=== PATIENT | male | born 1980 | race Caucasian/White ===

== ENCOUNTER 2018-04-18 12:37 | Emergency (ER) | payer SELFPAY ==
[2018-04-18 12:42] VITALS: BP 152/95
[2018-04-18] MEDS ORDERED: LIDOCAINE 2% VISCOUS SOLN 20 ML UDCUP PO ONE (13:07)
[2018-04-18] MEDS ORDERED: KETOROLAC TROMETHAMINE INJ/PF 30 MG/1 ML SDV IM ONE (13:07)
--- NOTE | 2018-04-18 13:13 | ER Document Report ---
HPI - HPI Pain Level: 5 Notes: Patient is a 38-year-old male who presents to the ED complaining of Rt lower dental pain #32 chronically due to poor dentition, but increased pain over the last 2 days. He has not noticed any obvious abscess or purulent discharge. Patient states that he is still able to eat and drink, but does have a decreased p.o. intake due to the pain. He has tried some [id number] meds with minimal relief. No other concerns or complaints. He believes there may be an infection and would like an antibiotic. He is scheduling an appointment to get the rest of his teeth removed. Denies any headache, fever, head injury, neck pain, hoarseness, drooling, URI, sore throat, chest pain, palpitations, syncope, cough, shortness of breath, wheeze, dyspnea, abdominal pain, nausea/ vomiting/diarrhea, urinary retention, dysuria, hematuria, or rash. - ROS Systems Reviewed and Negative: Yes All other systems reviewed and negative - DERM Skin Color: Normal <HERNANDO REED - Last Filed: 04/18/18 13:08> <PHUONG GRANT - Last Filed: 04/18/18 14:40> - HPI Time Seen by Provider: 04/18/18 13:02 Past Medical History - Social History Smoking Status: Current Every Day Smoker Chew tobacco use (# tins/day): No Frequency of alcohol use: None Drug Abuse: None Family History: Reviewed & Not Pertinent Patient has suicidal ideation: No Patient has homicidal ideation: No Renal/ Medical History: Denies: Hx Peritoneal Dialysis Past Surgical History: Reports: Hx Appendectomy <HERNANDO REED - Last Filed: 04/18/18 13:08> Vertical Provider Document - CONSTITUTIONAL Agree With Documented VS: Yes Notes: PHYSICAL EXAMINATION: GENERAL: Well-appearing, well-nourished and in no acute distress. HEAD: Atraumatic, normocephalic. EYES: Pupils equal round and reactive to light, extraocular movements intact, sclera anicteric, conjunctiva are normal. ENT: EAC clear b/l. TM's intact b/l without erythema, fluid, or perforation. Nares patent and without discharge. oropharynx clear without exudates. No tonsilar hypertrophy or erythema. Moist mucous membranes. No sinus tenderness. Uvula midline. No palatine shift. No tongue protrusion. No respiratory compromise. Mouth: Poor dentition. + severe decay and mild gingivitis. No obvious abscess or discharge noted. No facial swelling. + tenderness to tooth #32. NECK: Normal range of motion, supple without lymphadenopathy. No rigidity/ meningismus. LUNGS: Breath sounds clear to auscultation bilaterally and equal. No wheezes rales or rhonchi. HEART: Regular rate and rhythm without murmurs, rubs, gallops. NEUROLOGICAL: Cranial nerves grossly intact. Normal speech, normal gait. Normal sensory, motor exams PSYCH: Normal mood, normal affect. SKIN: Warm, Dry, normal turgor, no rashes or lesions noted. <HERNANDO REED - Last Filed: 04/18/18 13:08> Course - Re-evaluation Re-evalutation: 04/18/18 13:11 Patient is an afebrile, well-hydrated, 38-year-old male who presents to the ED with dental pain, suspect nerve root etiology versus infection. Vitals are acceptable. PE is otherwise unremarkable. No I&D, labs, or imaging warranted at this time based on H&P. Viscous lidocaine dispensed and toradol given today. I will send him home with a prescription for cleocin due to PCN allergy. Low suspicion for any meningitis, sepsis, peritonsillar/pharyngeal abscess, respiratory compromise, Marcial's, temporal arteritis, or other emergent systemic condition at this time. Patient is aware this condition can change from initial presentation and he needs to monitor symptoms closely. Conservative measures otherwise for symptoms. Call to schedule an appointment with a dentist for further evaluation and management. Recheck with your PCM this week as well. Return to the ED with any worsening/concerning symptoms otherwise as reviewed in discharge. Patient is in agreement. - Vital Signs Vital signs: Temp Pulse Resp BP Pulse Ox 97.5 F 95 18 152/95 H 100 04/18/18 12:39 04/18/18 12:39 04/18/18 12:39 04/18/18 12:39 04/18/18 12:39 <HERNANDO REED - Last Filed: 04/18/18 13:08> - Vital Signs Vital signs: Temp Pulse Resp BP Pulse Ox 97.5 F 95 18 152/95 H 100 04/18/18 12:39 04/18/18 12:39 04/18/18 12:39 04/18/18 12:39 04/18/18 12:39 <PHUONG GRANT - Last Filed: 04/18/18 14:40> Discharge <HERNANDO REED - Last Filed: 04/18/18 13:08> <PHUONG GRANT - Last Filed: 04/18/18 14:40> - Discharge Clinical Impression: Pain, dental Condition: Stable Disposition: HOME, SELF-CARE Instructions: Clindamycin ([facility]), Toothache ([facility]) Additional Instructions: Hardy and floss twice daily Maintain fluid intake Take antibiotics as directed Mouthwash, salt water gargles, peroxide rinse as needed Tylenol/ibuprofen as needed Recheck with PCM this week Call today/tomorrow and schedule an appointment with your dentist for further evaluation Return to the ED with any worsening symptoms and/or development of fever, headache, facial swelling, swelling of lips/tongue/throat, trouble swallowing, drooling, hoarseness, neck pain/stiffness, chest pain, palpitations, syncope, shortness of breath, trouble breathing, abdominal pain, n/v/d, numbness/tingling , or other worsening symptoms that are concerning to you. Prescriptions: Ibuprofen [Motrin 600 mg Tablet] 600 mg PO Q8HP PRN #21 tablet PRN Reason: Clindamycin HCl [Cleocin 300 mg Capsule] 300 mg PO TID #30 capsule Forms: Elevated Blood Pressure, Smoking Cessation Education Referrals: [facility] [Provider Group] - Follow up as needed
[2018-04-18] MEDS ORDERED: CLINDAMYCIN PHOSPHATE INJ 300 MG/2 ML SDV IM ONE (14:39)
== END 2018-04-18 15:02 | disposition home or self-care (01) ==
LOC: ER 12:37
DX: K08.9 Disorder of teeth and supporting structures, unspecified (principal); F17.200 Nicotine dependence, unspecified, uncomplicated
CPT/HCPCS: 99283; 96372; J3490 ×2

== ENCOUNTER 2020-04-06 12:32 | Emergency (ER) | payer SELFPAY ==
[2020-04-06 13:13] VITALS: BP 155/91
[2020-04-06] MEDS ORDERED: CLINDAMYCIN PHOSPHATE INJ 300 MG/2 ML SDV IM ONE (13:21)
[2020-04-06] MEDS ORDERED: OXYCODONE-ACETAMINOPHEN 5-325 MG TABLET PO ONE (13:22)
--- NOTE | 2020-04-06 13:22 | ER Document Report ---
HPI - HPI Time Seen by Provider: 04/06/20 13:14 Pain Level: 4 Notes: CHIEF COMPLAINT: Dental pain for 4 days HPI: 40-year-old male with dental pain for 4 days. History of dental infections from dental caries. Went to the [facility] 4 days ago and was started on K eflex, states it is no better. States he normally does well on clindamycin. Subjective fever at home yesterday. No facial swelling ROS: See HPI - all other systems were reviewed and are otherwise negative Constitutional: no fever Eyes: no drainage, no blurred vision ENT: no runny nose, no sore throat, positive dental pain Integumentary: no rash Allergy: no hives MEDICATIONS: I agree with the patient medications as charted by the RN. ALLERGIES: I agree with the allergies as charted by the RN. PAST MEDICAL HISTORY/PAST SURGICAL HISTORY: Reviewed and agree as charted by RN. SOCIAL HISTORY: Reviewed and agree as charted by RN. FAMILY HISTORY: No significant familial comorbid conditions directly related to patient complaint EXAM: Reviewed vital signs as charted by RN. CONSTITUTIONAL: Alert and oriented and responds appropriately to questions. Well-appearing; well-nourished HEAD: Normocephalic; atraumatic EYES: Conjunctivae clear, sclerae non-icteric ENT: normal nose; no rhinorrhea; moist mucous membranes; pharynx without lesions noted, no uvula edema or deviation, no tonsillar hypertrophy, phonation normal. There is moderate dental caries to all teeth in the oral cavity. Patient with tenderness on tapping of the left lower second and first molars. No gingival edema. No facial swelling. No trismus. No submental or submandibular swelling. NECK: Supple without meningismus; non-tender; + cervical lymphadenopathy, no masses CARD: symmetric distal pulses RESP: Normal chest excursion without splinting or tachypnea ABD/GI: non-distended BACK: The back appears normal EXT: Normal ROM in all joints; no cyanosis, no effusions, no edema SKIN: Normal color for age and race; warm; dry; good turgor; no acute lesions noted NEURO: Moves all extremities equally; Motor and sensory function intact PSYCH: The patient's mood and manner are appropriate. Grooming and personal hygiene are appropriate. MDM: 40-year-old male acting very dramatically in triage presenting for dental pain over the last 4 days. Patient will not sit still making exam difficult. Nursing could not get a temperature on the patient because he keeps drinking cold water. Family member with the patient indicating that he normally does well on clindamycin. They are requesting intramuscular clindamycin. Patient is on Keflex over the last 4 days. Will start patient on clindamycin, he was aware that he must follow-up with a dentist. There is no sublingual or submandibular swelling suggesting a large abscess at this time Past Medical History - Social History Smoking Status: Never Smoker Chew tobacco use (# tins/day): No Frequency of alcohol use: None Drug Abuse: None Family History: Reviewed & Not Pertinent Renal/ Medical History: Denies: Hx Peritoneal Dialysis Past Surgical History: Reports: Hx Appendectomy Course - Vital Signs Vital signs: Temp Pulse Resp BP Pulse Ox 90 20 155/91 H 100 04/06/20 13:13 04/06/20 13:13 04/06/20 13:13 04/06/20 13:13 Discharge - Discharge Clinical Impression: Pain due to dental caries Condition: Stable Disposition: HOME, SELF-CARE Additional Instructions: 1. Take the medications as prescribed, if you were written antibiotics make sure that you finish them. 2. You need to follow up with a dentist for definitive evaluation and care of your dental problems 3. return to the ED for any facial swelling, fever > 101, difficulty swallowing or opening the mouth. 4. You may attempt to follow up with the [facility] for further care as well as through the dental list provided. 5. you may want to consider a dental discount plan such as [email or web address] to help with costs of dental care as you do not have dental insurance Prescriptions: Clindamycin HCl 300 mg PO TID #30 capsule Oxycodone HCl/Acetaminophen [Percocet 5-325 mg Tablet] 1 tab PO Q4H PRN #10 tab PRN Reason:
== END 2020-04-06 13:30 | disposition home or self-care (01) ==
LOC: ER 12:32
DX: K02.9 Dental caries, unspecified (principal); K08.89 Other specified disorders of teeth and supporting structures
CPT/HCPCS: 99284; 96372; J3490